=== PATIENT | female | born 1940 | race Caucasian/White ===

== ENCOUNTER 2016-06-12 15:53 | Inpatient (IN) | payer OTHER ==
[2016-06-12] MEDS ORDERED: HYDROCODONE/APAP 10/325 TAB PO PRN (17:37)
[2016-06-12] MEDS ORDERED: POLYETHYLENE GLYCOL 3350 17 GM PKT PO PRN (17:37)
[2016-06-12] MEDS ORDERED: FUROSEMIDE 20 MG TAB PO PRN (17:37)
[2016-06-12] MEDS ORDERED: BISACODYL 10 MG SUPP PR PRN (17:40)
--- NOTE | 2016-06-12 18:57 | PDOREHIP ---
Admission [facility] - Admission - 3 Day Assessment Period Admission Date/Day 1: 06/12/16 Day 2: 06/13/16 Day 3: 06/14/16 - Active Diagnoses Comorbidities and Co-existing Conditions at Admission: 15223. None of the Above - Skin Conditions Unhealed Pressure Ulcer (1 or more/Stage 1 or >)-Admission: 0. No
--- NOTE | 2016-06-12 20:09 | GHP ---
[f rep st] HISTORY AND PHYSICAL DATE OF ADMISSION: 06/12/2016 Referring Physician: Ean Boyer MD POST ADMISSION PHYSICIAN EVALUATION AND REHABILITATION TREATMENT PLAN: DATE OF EVALUATION: 06/12/2016 TIME OF EVALUATION: 1800 REFERRING FACILITY: [facility]. CONSULTING PHYSICIANS: None. REHABILITATION DIAGNOSIS: Debility status post TECHNICAL PROFESSIONAL shunt placement for normal pressure hydrocephalus. IMPAIRMENT GROUP: 3.9 ETIOLOGIC DIAGNOSIS: Other.neurologic conditions. DATE OF ONSET: 06/10/2016 DATE OF SURGERY: 06/10/2016 HISTORY OF PRESENT ILLNESS: Mrs. Corrigan had a lumbar spinal fusion for lumbar stenosis in April of this year. Her symptoms were back pain, as well as neurogenic claudication and difficulty walking. She had resolution of her symptoms after the surgery, and reports that the surgery went quite well. However, she continued to have difficulty walking. She was seen by a neurologist and had a head CT, which was suggestive of normal pressure hydrocephalus. She had a trial of a lumbar puncture, and her gait was improved. Therefore, she chose to have elective surgery with a TECHNICAL PROFESSIONAL shunt placement. She underwent this surgery on 06/10/2016. Since surgery she has begun physical and occupational therapy. She was able to ambulate 15 feet x 2. She was noted to have impaired motor planning and freezing type episodes, especially with the left lower extremity. She was otherwise medically stable and ready for rehabilitation. STUDIES AND LABS DURING HER HOSPITALIZATION: The only laboratory study was a PTT, which was slightly low at 20.6. She had a head CT postsurgery, which demonstrated no hemorrhage, the ventriculostomy catheter at the medial aspect of the frontal horn of the right lateral ventricle, and otherwise was within normal limits. An abdominal x-ray verified that the TECHNICAL PROFESSIONAL shunt terminated in the right lower quadrant. Chest x-ray was overall normal, with no discontinuity of the TECHNICAL PROFESSIONAL shunt seen; and a skull x-ray verified a normal course of the ventriculoperitoneal shunt, with no evidence of discontinuity. PRECAUTIONS: She is a fall risk. ACTIVE COMORBIDITIES: She has no tier 1 or tier 2 active comorbidities. She does have morbid obesity, with obesity complicated by hypertension. PAST MEDICAL HISTORY: 1. Hypertension. 2. Dyslipidemia. 3. Hypothyroidism. 4. History of Helicobacter pylori infection. 5. Lower extremity venous insufficiency. 6. Gastroparesis. 7. Osteoarthritis bilaterally in the knees. 8. Urinary incontinence. 9. Gastroesophageal reflux disorder. 10. Irritable bowel syndrome. 11. Lumbar spinal stenosis. 12. Cholecystitis. PAST SURGICAL HISTORY: 1. Hysterectomy. 2. Appendectomy. 3. Laparoscopic cholecystectomy. 4. Bladder suspension. 5. Cataract removal. 6. Posterior spinal fusion. PRE-HOSPITAL MEDICATIONS: I do not have a full list. She was, however, takin. Bisoprolol hydrochlorothiazide combination pill 10/6.25 mg 1 p.o. daily. 2. Cholecalciferol 1000 units p.o. daily. 3. Furosemide 10 mg p.o. daily on a p.r.n. basis. 4. Levothyroxine 75 mcg p.o. daily. 5. Lisinopril 10 mg p.o. daily. 6. Metoclopramide 5 mg p.o. daily. 7. Pantoprazole 40 mg p.o. daily. 8. Oxybutynin 5 mg p.o. daily. ADMISSION MEDICATIONS: 1. Bisoprolol hydrochlorothiazide combination pill 10/6.25 mg 1 p.o. daily. 2. Cholecalciferol 1000 units p.o. daily. 3. Furosemide 10 mg p.o. daily on a p.r.n. basis. 4. Levothyroxine 75 mcg p.o. daily. 5. Lisinopril 10 mg p.o. daily. 6. Metoclopramide 5 mg p.o. daily. 7. Pantoprazole 40 mg p.o. daily. 8. Oxybutynin 5 mg p.o. daily. 9. Acetaminophen 650 mg p.o. q.4 hours p.r.n. 10. Acetaminophen/hydrocodone 10/325, 1-2 tabs p.o. q.6 hours p.r.n., and she has not been taking this. 11. Polyethylene glycol 17 g p.o. daily p.r.n. 12. Senna/docusate 1-2 tabs p.o. twice daily p.r.n. ALLERGIES: There are allergies listed to opioids, and in particular morphine analogs. FAMILY HISTORY: Diabetes mellitus, hypertension, heart disease, and cancer. PSYCHOSOCIAL HISTORY: She is . She lived for many years in [place], [place]. She has moved to [place] to be closer to her daughter. She has 2 other children, another one of whom is in [place]. She is a nonsmoker and nondrinker. 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 She is originally from [place]. REVIEW OF SYSTEMS: Pain has been adequately controlled with acetaminophen. She has had interrupted sleep due to blood draws and other interruptions in the hospital, plus she was at a skilled nursing for rehabilitation after her spinal surgery and had interrupted sleep there also. She reports that she was taking methocarbamol in the hospital and it seemed to help her sleep. Otherwise it did not have any particular role in pain management. She has some abdominal tenderness around the abdominal incision. She reports that she has been able to make transfers, but has had difficulty walking. There is a report from the other hospital of some urinary incontinence overnight. She denies fevers, chills, difficulty swallowing, nausea, vomiting, constipation, or diarrhea. She denies dysuria or urinary frequency. She denies joint pain or joint swelling. She denies skin rash or skin breakdown. She is in good spirits. Otherwise, a 10-point review of systems is negative. PHYSICAL EXAM: VITAL SIGNS: Blood pressure is 111/66, heart rate is 66, respiratory rate 16, oxygen saturation is 94% on room air, temperature is 36.7 degrees centigrade. Her weight is 81.6 kg, for a body mass index of 38.9. GENERAL: This is an obese, otherwise petite woman. Appears younger than her chronologic age. Cooperative, and in no acute distress. HEENT: Extraocular movements are intact. Pupils are equal, round, and reactive to light and accommodation. Mucous membranes are moist. Dentition is in good condition. She has a crowded airway, Mallampati class 3. NECK: Supple. HEART: There is a regular rate and rhythm, with no murmurs, rubs, or gallops. LUNGS: Clear to auscultation bilaterally. ABDOMEN: Soft, nontender, nondistended, with normoactive bowel sounds, and no hepatosplenomegaly. She has some tenderness around her abdominal incision in the right upper quadrant. EXTREMITIES: There is no cyanosis, clubbing, or edema. Radial and dorsalis pedis pulses are 2+ bilaterally. NEUROLOGIC: She is alert and oriented x3. Cranial nerves 2-12 are grossly intact. She has 4/5 strength in the left biceps and in the right hamstring. Otherwise strength appears to be 5/5 overall. Deep tendon reflexes are hypoactive at the right patella and Achilles tendons, and are 1+ bilaterally at the left patella and Achilles tendons. Sensation is intact to light touch. Plantar reflex is indeterminate bilaterally. She requires minimal assistance of one person to arise to seated from supine. SKIN: Incisions on her right frontal scalp and in her right upper quadrant are well- approximated, with eschar, and no erythema or drainage. CURRENT LEVEL OF FUNCTION PER THE PRE-ADMISSION SCREEN: Regarding diet, feeding , and swallowing, she was taking a regular diet. For grooming she required contact guard to minimal assistance. For bathing she required assistance. For dressing she required assistance. For toileting she needed minimal assistance for clothing management. She transferred to a raised height toilet seat with minimal assistance. Regarding bladder, she was incontinent. Regarding bowel, she was continent. Regarding bed mobility she required moderate assistance for transfers, minimal assistance using a front-wheeled walker. For balance she required standby assist for sitting, and minimal assist for standing balance. Her endurance was rated as fair to fair minus. For gait she required minimal assistance. Regarding cognition, she was noted to have mild impairment in attention, problem solving, and reasoning. IMPRESSION: Mrs. Corrigan is a 76-year-old woman who had a successful surgery for normal pressure hydrocephalus with ventriculoperitoneal shunt placement. She had considerable debility prior to the surgery, requiring much assistance at home, and had not recovered functionally after what was also a successful spinal fusion for spinal stenosis. After that surgery she was pain free, but could not recover ambulation. She was diagnosed with normal pressure hydrocephalus, and now has had surgery for it and is ready for therapies with physical and occupational therapy to optimize her independence with activities of daily living and mobility. She was noted to have mild impairment in attention, problem solving, and reasoning in the acute care hospital, and so will be assessed as well by Speech and Language Pathology. She is appropriate for inpatient rehabilitation with therapies as above. Additionally, she will require nursing care due to her fall risk, for bowel and bladder management, and for attention to wound healing. Additionally, she will have education regarding medications. She will require medical care with attention to pain management, especially as she becomes more active, as well as comorbidities including hypertension, history of overactive bladder, gastroparesis, gastroesophageal reflux disorder, and irritable bowel syndrome. Her goal is to return home with family and supportive services. For a safe discharge, it is anticipated she will become independent with eating, grooming, and bed mobility. She likely will continue to require supervision to minimal assistance for dressing, bathing, and ambulation with the least restrictive device. She will most likely continue to require assistance for shopping, cooking, and household management. She will receive therapy with Physical Therapy, Occupational Therapy, and Speech and Language Pathology for 60 minutes per day for each discipline, on 5- 7 days of the week. Her expected duration of stay is 7-10 days. It is anticipated that upon discharge she will continue to benefit from home health services including speech and language pathology, a home health aide, occupational therapy, and physical therapy. . ASSESSMENT/PLAN: 1. Prolonged debility following surgery for spinal stenosis two months ago, with diagnosis of normal pressure hydrocephalus and placement of ventriculoperitoneal shunt on 06/10/2016. Physical and occupational therapy to optimize mobility and activities of daily living. Pain control appears to be adequate with acetaminophen, but this will be monitored. 2. Possible cognitive impairment following her surgery. She will be assessed and treated per Speech and Language Pathology. 3. Symptoms of overactive bladder, and urinary incontinence. These may have been due to normal pressure hydrocephalus. She is not clear that the oxybutynin has been an effective medication for this, and so it will not be continued at present and she will be observed. She will have bladder training per the rehabilitation bladder program. 4. Hypertension. Continue lisinopril and monitor her blood pressure. 5. Gastroparesis. She reports that at home she was using metoclopramide once a day, just in the morning, so the dosing will be changed from twice daily to daily. She has also learned to take smaller meals, which has helped her. Initially this presented with frequent vomiting, which she no longer experiences. 6. History of spinal stenosis status post spinal fusion surgery. It is unclear whether she has any sequelae of that condition. That might be also affecting her gait and her mobility. This will be further assessed by Physical Therapy. 7. Morbid obesity. She will have an assessment by a analytics associate to optimize her nutrition. 8. Hypothyroidism. Continue her levothyroxine. 9. Vitamin D deficiency, on cholecalciferol supplementation. 10. Gastroesophageal reflux disorder. Continue pantoprazole. 11. Deep venous thrombosis prophylaxis. She has not had a major surgery causing immobility; however, she is at elevated risk due to obesity and age. She will be treated with SCDs and MARY hose, and no pharmacological prophylaxis at present. If she is very slow to regain mobility, then consideration will be given to initiating pharmacologic prophylaxis. /[id number]/MODL MTDD
[2016-06-12] MEDS ORDERED: METOCLOPRAMIDE 5 MG TAB PO SCH (21:00)
[2016-06-12] MEDS: METHOCARBAMOL 750 MG TAB PO PRN (21:01)
[2016-06-12] MEDS: ACETAMINOPHEN 325 MG TAB PO PRN (23:31)
[2016-06-13] MEDS: LEVOTHYROXINE 75 MCG TAB PO SCH (06:04)
[2016-06-13] MEDS: ACETAMINOPHEN 325 MG TAB PO PRN ×2 (06:05→20:36)
[2016-06-13] MEDS ORDERED: OXYBUTYNIN 5 MG EXT REL TAB PO SCH (09:00)
[2016-06-13] MEDS ORDERED: NON-FORMULARY NEW DRUG (Omeprazole [Omeprazole] 40 MG) PO SCH (09:00)
[2016-06-13] MEDS: CHOLECALCIFEROL VIT D3 1,000 UNITS TAB PO SCH (09:02)
[2016-06-13] MEDS: LISINOPRIL 10 MG TAB PO SCH (09:04)
[2016-06-13] MEDS: METOCLOPRAMIDE 5 MG TAB PO SCH (09:05)
[2016-06-13] MEDS: PANTOPRAZOLE SODIUM 40 MG TAB PO SCH (09:06)
[2016-06-13] MEDS: BISOPROLOL/HCTZ 10/6.25MG 1 EACH TAB PO SCH (10:11)
--- NOTE | 2016-06-13 10:19 | SOAPPROG ---
SOAP Progress Note Assessment/Plan: Assessment: 76 yo F s/p COVER MARKER shunt placement 06/10/16 for normal pressure hydrocephalus, diagnosed after failure to regain normal ambulation following surgery for spinal stenosis 2 months previously: * Debility: Physical and occupational therapy to optimize mobility and activities of daily living. Pain control appears to be adequate with acetaminophen. * Possible cognitive impairment following her surgery. She will be assessed and treated per Speech and Language Pathology. * Symptoms of overactive bladder, and urinary incontinence: due to normal pressure hydrocephalus? Currently asymptomatic w/out oxybutynin. Continue to monitor * History of spinal stenosis status post spinal fusion surgery. It is unclear whether she has any sequelae of that condition. This will be further assessed by Physical Therapy. * Hypertension. Continue lisinopril and bisoprolol/HCTZ and monitor her blood pressure. * Deep venous thrombosis prophylaxis. She has not had a major surgery causing immobility; however, she is at elevated risk due to obesity and age. She will be treated with SCDs and MARY hose, and no pharmacological prophylaxis at present. If she is very slow to regain mobility, then consideration will be given to initiating pharmacologic prophylaxis. Chronic stable conditions: * Gastroparesis. She reports that at home she was using metoclopramide once a day, just in the morning, so the dosing will be changed from twice daily to daily. She has also learned to take smaller meals, which has helped her. Initially this presented with frequent vomiting, which she no longer experiences. * Morbid obesity. She will have an assessment by a distribution supervisor to optimize her nutrition. * Hypothyroidism. Continue her levothyroxine. * Vitamin D deficiency, on cholecalciferol supplementation. * Gastroesophageal reflux disorder. Continue pantoprazole. 06/13/16 12:12 Subjective: No complaints. Not in pain. slept well. No f/c, cough/dyspnea, n/v/c/d, dysuria, urinary incontinence. Objective: Vital Signs Temp Pulse Resp BP Pulse Ox 36.7 C 65 16 118/72 95 06/13/16 06:10 06/13/16 10:11 06/13/16 06:10 06/13/16 10:11 06/13/16 06:10 06/12/16 06/13/16 06/14/16 05:59 05:59 05:59 Intake Total 450 Balance 450 Physical Exam - Physical Exam General Appearance: WD/WN, alert, no apparent distress, obese Respiratory: No respiratory distress, No accessory muscle use Skin: normal color, warm/dry Neuro/Psych: alert, normal mood/affect, oriented x 3, other (Observe transferring ot of bed and ambulating with PT. Needed assistance with bed mobility and appeared to have freezing episode moving L leg out of bed. Standing balance good. AMbulated with conscious kicking forward of each leg. No magnetic gait seen.) ICD10 Worksheet Patient Problems: Problems Problem Status Diagnosed Normal pressure hydrocephalus Acute
[2016-06-13] MEDS ORDERED: CALCIUM CARBONATE 500 MG CHEWABLE TAB PO PRN (13:04)
[2016-06-13] MEDS: METHOCARBAMOL 750 MG TAB PO PRN (20:36)
[2016-06-13] MEDS: SENNOSIDES 1 TAB PO PRN (21:09)
[2016-06-14] MEDS: LEVOTHYROXINE 75 MCG TAB PO SCH (06:30)
[2016-06-14] MEDS: ACETAMINOPHEN 325 MG TAB PO PRN ×3 (06:33→19:58)
[2016-06-14] MEDS: POLYETHYLENE GLYCOL 3350 17 GM PKT PO SCH (08:48)
[2016-06-14] MEDS: BISOPROLOL/HCTZ 10/6.25MG 1 EACH TAB PO SCH (08:53)
[2016-06-14] MEDS: CHOLECALCIFEROL VIT D3 1,000 UNITS TAB PO SCH (08:54)
[2016-06-14] MEDS: LISINOPRIL 10 MG TAB PO SCH (08:55)
[2016-06-14] MEDS: PANTOPRAZOLE SODIUM 40 MG TAB PO SCH (08:56)
[2016-06-14] MEDS: METOCLOPRAMIDE 5 MG TAB PO SCH (08:56)
--- NOTE | 2016-06-14 11:02 | SOAPPROG ---
SOAP Progress Note Assessment/Plan: Assessment: 76 yo F s/p WRAPPER STITCHER shunt placement 06/10/16 for normal pressure hydrocephalus, diagnosed after failure to regain normal ambulation following surgery for spinal stenosis 2 months previously: * Debility: Physical and occupational therapy to optimize mobility and activities of daily living. Pain control appears to be adequate with acetaminophen. * Possible cognitive impairment following her surgery. She will be assessed and treated per Speech and Language Pathology. * Symptoms of overactive bladder, and urinary incontinence: due to normal pressure hydrocephalus? Start oxybutynin 5 mg QHS for overnight incontinence. Bladder training with timed voiding. * History of spinal stenosis status post spinal fusion surgery. It is unclear whether she has any sequelae of that condition. This will be further assessed by Physical Therapy. * Hypertension. Continue lisinopril and bisoprolol/HCTZ and monitor her blood pressure. * Deep venous thrombosis prophylaxis. She has not had a major surgery causing immobility; however, she is at elevated risk due to obesity and age. She will be treated with SCDs and MARY dedee, and no pharmacological prophylaxis at present. If she is very slow to regain mobility, then consideration will be given to initiating pharmacologic prophylaxis. Chronic stable conditions: * Gastroparesis. She reports that at home she was using metoclopramide once a day, just in the morning, so the dosing will be changed from twice daily to daily. She has also learned to take smaller meals, which has helped her. Initially this presented with frequent vomiting, which she no longer experiences. * Morbid obesity. She will have an assessment by a sewer pipe press operator to optimize her nutrition. * Hypothyroidism. Continue her levothyroxine. * Vitamin D deficiency, on cholecalciferol supplementation. * Gastroesophageal reflux disorder. Continue pantoprazole. 06/14/16 11:01 Subjective: Reports urinary incontinence with urgency at night, when she's unable to get to the bathroom. No dysuria, f/c, n/v/c/d. Objective: Vital Signs Temp Pulse Resp BP Pulse Ox 36.6 C 72 16 110/68 96 06/14/16 07:27 06/14/16 08:53 06/14/16 07:27 06/14/16 08:55 06/14/16 07:27 06/13/16 06/14/16 06/15/16 05:59 05:59 05:59 Intake Total 450 240 Output Total 625 Balance 450 -385 Physical Exam - Physical Exam General Appearance: WD/WN, alert, no apparent distress, obese Respiratory: normal breath sounds, No crackles, No rhonchi, No wheezing Cardiac/Chest: regular rate, rhythm, No edema Skin: normal color, warm/dry Neuro/Psych: alert, normal mood/affect, oriented x 3 ICD10 Worksheet Patient Problems: Problems Problem Status Diagnosed Normal pressure hydrocephalus Acute
[2016-06-14] MEDS: OXYBUTYNIN CHLORIDE 5 MG TAB PO SCH (19:58)
[2016-06-14] MEDS: METHOCARBAMOL 750 MG TAB PO PRN (20:01)
[2016-06-15] MEDS: LEVOTHYROXINE 75 MCG TAB PO SCH (06:13)
[2016-06-15] MEDS: POLYETHYLENE GLYCOL 3350 17 GM PKT PO SCH (10:15)
[2016-06-15] MEDS: BISOPROLOL/HCTZ 10/6.25MG 1 EACH TAB PO SCH (10:18)
[2016-06-15] MEDS: ACETAMINOPHEN 325 MG TAB PO PRN ×2 (10:23→19:45)
[2016-06-15] MEDS: LISINOPRIL 10 MG TAB PO SCH (10:24)
[2016-06-15] MEDS: CHOLECALCIFEROL VIT D3 1,000 UNITS TAB PO SCH (10:24)
[2016-06-15] MEDS: METOCLOPRAMIDE 5 MG TAB PO SCH (10:25)
[2016-06-15] MEDS: PANTOPRAZOLE SODIUM 40 MG TAB PO SCH (10:26)
--- NOTE | 2016-06-15 12:24 | SOAPPROG ---
SOAP Progress Note Assessment/Plan: Assessment: 76 yo F s/p JAVA USER INTERFACE DEVELOPER shunt 06/10/16 for NPH, diagnosed after failure to regain normal ambulation following surgery for spinal stenosis 2 months previously: * Debility: Physical and occupational therapy to optimize mobility and activities of daily living. Pain control appears to be adequate with acetaminophen. Ambulation improving. * Possible cognitive impairment following her surgery. Cont eval and treatment per Speech and Language Pathology. * Symptoms of overactive bladder, and urinary incontinence: due to normal pressure hydrocephalus? Oxybutynin 5 mg QHS for overnight incontinence. Bladder training with timed voiding. NSG reports less episodes of incontinence. * History of spinal stenosis, s/p spinal fusion surgery. Cont eval and treat with Physical Therapy. * Hypertension. Continue lisinopril and bisoprolol/HCTZ and monitor her blood pressure. * Deep venous thrombosis prophylaxis. She has not had a major surgery causing immobility; however, she is at elevated risk due to obesity and age. She will be treated with SCDs and MARY hose, and no pharmacological prophylaxis at present. Chronic stable conditions: * Gastroparesis. She reports that at home she was using metoclopramide once a day, just in the morning, so the dosing will be changed from twice daily to daily. She has also learned to take smaller meals, which has helped her. Initially this presented with frequent vomiting, which she no longer experiences. * Morbid obesity. She will have an assessment by a glass cutter helper to optimize her nutrition. * Hypothyroidism. Continue her levothyroxine. * Vitamin D deficiency, on cholecalciferol supplementation. * Gastroesophageal reflux disorder. Continue pantoprazole. Plan: Cont Dr Joy rehab treatment plan 06/15/16 12:21 Subjective: No new complaints Very pleased with her progress and her care No F/C/CP/SOB/N/V/D Has moderate constipation, wishes to decline meds, suppository, enema at this time Objective: Vital Signs Temp Pulse Resp BP Pulse Ox 36.5 C 73 16 133/71 H 95 06/15/16 08:00 06/15/16 10:18 06/15/16 08:00 06/15/16 10:24 06/15/16 08:00 06/14/16 06/15/16 06/16/16 05:59 05:59 05:59 Intake Total 240 400 Output Total 625 400 Balance -385 0 Physical Exam - Physical Exam General Appearance: alert, no apparent distress Neck: supple Respiratory: lungs clear Cardiac/Chest: regular rate, rhythm Abdomen: normal bowel sounds, soft Skin: normal color, warm/dry Extremities: No pedal edema, No calf tenderness Neuro/Psych: alert, normal mood/affect, oriented x 3, other (no acute changes) ICD10 Worksheet Patient Problems: Problems Problem Status Diagnosed Normal pressure hydrocephalus Acute
[2016-06-15] MEDS: SENNOSIDES 1 TAB PO PRN (19:46)
[2016-06-15] MEDS: METHOCARBAMOL 750 MG TAB PO PRN (19:46)
[2016-06-15] MEDS: OXYBUTYNIN CHLORIDE 5 MG TAB PO SCH (19:46)
[2016-06-16] MEDS: LEVOTHYROXINE 75 MCG TAB PO SCH (05:20)
[2016-06-16] MEDS: BISOPROLOL/HCTZ 10/6.25MG 1 EACH TAB PO SCH (08:34)
[2016-06-16] MEDS: ACETAMINOPHEN 325 MG TAB PO PRN ×2 (08:35→19:36)
[2016-06-16] MEDS: PANTOPRAZOLE SODIUM 40 MG TAB PO SCH (08:35)
[2016-06-16] MEDS: POLYETHYLENE GLYCOL 3350 17 GM PKT PO SCH ×2 (08:35→08:43)
[2016-06-16] MEDS: LISINOPRIL 10 MG TAB PO SCH (08:35)
[2016-06-16] MEDS: METOCLOPRAMIDE 5 MG TAB PO SCH (08:35)
[2016-06-16] MEDS: CHOLECALCIFEROL VIT D3 1,000 UNITS TAB PO SCH (08:35)
[2016-06-16] MEDS: SENNOSIDES 1 TAB PO PRN (08:41)
[2016-06-16] MEDS ORDERED: PREPARATION H 51 GM CRTUBE PR PRN (09:53)
--- NOTE | 2016-06-16 12:14 | SOAPPROG ---
SOAP Progress Note Assessment/Plan: Assessment: 76 yo F s/p VIDEO CLERK shunt 06/10/16 for NPH, diagnosed after failure to regain normal ambulation following surgery for spinal stenosis 2 months previously: * Debility: Improving. Physical and occupational therapy to optimize mobility and activities of daily living. Ambulation improving, using her own walker. * Pain: control appears to be adequate with acetaminophen. * Possible cognitive impairment following her surgery. Cont eval and treatment per Speech and Language Pathology. * Symptoms of overactive bladder, and urinary incontinence: due to normal pressure hydrocephalus? Oxybutynin 5 mg QHS for overnight incontinence. Bladder training with timed voiding. NSG reports less episodes of incontinence. * History of spinal stenosis, s/p spinal fusion surgery. Cont eval and treat with Physical Therapy. * Hypertension. Continue lisinopril and bisoprolol/HCTZ and monitor her blood pressure. * Deep venous thrombosis prophylaxis. Cont treatment with SCDs and MARY ernst, progress mobility. Chronic stable conditions: * Gastroparesis. She reports that at home she was using metoclopramide once a day, just in the morning, so the dosing will be changed from twice daily to daily. She has also learned to take smaller meals, which has helped her. Initially this presented with frequent vomiting, which she no longer experiences. * Morbid obesity. She will have an assessment by a braided rug maker to optimize her nutrition. * Hypothyroidism. Continue her levothyroxine. * Vitamin D deficiency, on cholecalciferol supplementation. * Gastroesophageal reflux disorder. Continue pantoprazole. Plan: Cont Dr Joy rehab treatment plan 06/16/16 12:11 Subjective: No new problems or C/O's Medically stable VSS No F/C/CP/SOB/N/V/D/C Objective: Vital Signs Temp Pulse Resp BP Pulse Ox 36.8 C 67 16 130/71 H 94 06/16/16 06:32 06/16/16 08:34 06/16/16 06:32 06/16/16 08:35 06/16/16 06:32 06/15/16 06/16/16 06/17/16 05:59 05:59 05:59 Intake Total 400 200 472 Output Total 400 550 350 Balance 0 -350 122 Physical Exam - Physical Exam General Appearance: alert, no apparent distress Neck: supple Respiratory: lungs clear Cardiac/Chest: regular rate, rhythm Skin: normal color, warm/dry Extremities: No pedal edema, No calf tenderness Neuro/Psych: alert, normal mood/affect, oriented x 3, motor weakness ( generalized, improving), other (no acute changes) ICD10 Worksheet Patient Problems: Problems Problem Status Diagnosed Normal pressure hydrocephalus Acute
[2016-06-16] MEDS: OXYBUTYNIN CHLORIDE 5 MG TAB PO SCH (19:36)
[2016-06-17] MEDS: LEVOTHYROXINE 75 MCG TAB PO SCH (06:02)
[2016-06-17] MEDS: BISOPROLOL/HCTZ 10/6.25MG 1 EACH TAB PO SCH (08:34)
[2016-06-17] MEDS: CHOLECALCIFEROL VIT D3 1,000 UNITS TAB PO SCH (08:34)
[2016-06-17] MEDS: METOCLOPRAMIDE 5 MG TAB PO SCH (08:35)
[2016-06-17] MEDS: LISINOPRIL 10 MG TAB PO SCH (08:35)
[2016-06-17] MEDS: PANTOPRAZOLE SODIUM 40 MG TAB PO SCH (08:36)
[2016-06-17] MEDS: ACETAMINOPHEN 325 MG TAB PO PRN ×3 (08:36→20:33)
[2016-06-17] MEDS: POLYETHYLENE GLYCOL 3350 17 GM PKT PO SCH (08:36)
[2016-06-17] MEDS ORDERED: POLYETHYLENE GLYCOL 3350 17 GM PKT PO PRN (14:26)
--- NOTE | 2016-06-17 14:35 | SOAPPROG ---
SOAP Progress Note Assessment/Plan: Assessment: 76 yo F s/p MEDICAL OFFICER PSYCHIATRY shunt placement 06/10/16 for normal pressure hydrocephalus, diagnosed after failure to regain normal ambulation following surgery for spinal stenosis 2 months previously: * Debility: Initial FIM 79 on 06/17/16. Variable function; CGA to min A bed mobility; worse later in the day. Walked 60'. Min A LB dressing, toileting. Continue Physical and occupational therapy to optimize mobility and activities of daily living. * Possible cognitive impairment following her surgery. Noted to have reduced exec fn, problem solving. Continue Speech and Language Pathology. * Symptoms of overactive bladder, and urinary incontinence: due to normal pressure hydrocephalus? Start oxybutynin 5 mg QHS for overnight incontinence. Continue timed voiding. * History of spinal stenosis status post spinal fusion surgery. Continue PT & OT. * Hypertension. Adequate control with lisinopril and bisoprolol/HCTZ. * Deep venous thrombosis prophylaxis. She has not had a major surgery causing immobility; however, she is at elevated risk due to obesity and age. She will be treated with SCDs and MARY dedee, and no pharmacological prophylaxis at present. If she is very slow to regain mobility, then consideration will be given to initiating pharmacologic prophylaxis. Chronic stable conditions: * Gastroparesis. She reports that at home she was using metoclopramide once a day, just in the morning, so the dosing will be changed from twice daily to daily. She has also learned to take smaller meals, which has helped her. Initially this presented with frequent vomiting, which she no longer experiences. * Morbid obesity. She will have an assessment by a novelty balloon assembler and packer to optimize her nutrition. * Hypothyroidism. Continue her levothyroxine. * Vitamin D deficiency, on cholecalciferol supplementation. * Gastroesophageal reflux disorder. Continue pantoprazole. Attended staffing, 15 min. D/W case mgmt, nursing, PT, OT, CLOTHING SUPERVISOR. Good potential for continued improvement. Tentative discharge date of 06/24/16. 06/17/16 14:31 Subjective: No complaints, Slept well, no f/c, no cough/dyspnea. Continent of urine with timed voiding. Nurse reports diarrhea from laxatives. Using only acetaminophen for pain. Objective: Vital Signs Temp Pulse Resp BP Pulse Ox 36.8 C 76 15 122/78 H 95 06/17/16 06:40 06/17/16 08:34 06/17/16 06:40 06/17/16 08:35 06/17/16 06:40 06/16/16 06/17/16 06/18/16 05:59 05:59 05:59 Intake Total 200 712 540 Output Total 550 350 Balance -350 362 540 - Time Spent With Patient Time Spent With Patient: Greater than 35 minutes floor time today, including more than 50% of time in coordination of care during staffing, and counseling patient. Physical Exam - Physical Exam General Appearance: WD/WN, alert, no apparent distress, obese Respiratory: normal breath sounds, No crackles, No rhonchi, No wheezing Cardiac/Chest: regular rate, rhythm, No edema Skin: normal color, warm/dry Neuro/Psych: alert, normal mood/affect, oriented x 3 ICD10 Worksheet Patient Problems: Problems Problem Status Diagnosed Normal pressure hydrocephalus Acute
[2016-06-17] MEDS: OXYBUTYNIN CHLORIDE 5 MG TAB PO SCH (20:15)
[2016-06-17] MEDS: METHOCARBAMOL 750 MG TAB PO PRN (20:15)
[2016-06-18] MEDS: LEVOTHYROXINE 75 MCG TAB PO SCH (06:02)
[2016-06-18] MEDS: ACETAMINOPHEN 325 MG TAB PO PRN ×3 (06:02→20:11)
[2016-06-18] MEDS: BISOPROLOL/HCTZ 10/6.25MG 1 EACH TAB PO SCH (09:20)
[2016-06-18] MEDS: CHOLECALCIFEROL VIT D3 1,000 UNITS TAB PO SCH (09:21)
[2016-06-18] MEDS: METOCLOPRAMIDE 5 MG TAB PO SCH (09:22)
[2016-06-18] MEDS: LISINOPRIL 10 MG TAB PO SCH (09:22)
[2016-06-18] MEDS: PANTOPRAZOLE SODIUM 40 MG TAB PO SCH (09:23)
--- NOTE | 2016-06-18 09:59 | SOAPPROG ---
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 Variable function; CGA to min A bed mobility; worse later in the day. Walked 60' as of 06/17/15 in AM; later walked 200'. Min A LB dressing, toileting. Continue physical and occupational therapy to optimize mobility and activities of daily living. * Possible cognitive impairment following her surgery. Noted to have reduced exec fn, problem solving. Continue Speech and Language Pathology. * Symptoms of overactive bladder, and urinary incontinence: due to normal pressure hydrocephalus? Started oxybutynin 5 mg QHS on 06/14/16 for overnight incontinence. Continue timed voiding. * History of spinal stenosis status post spinal fusion surgery. Continue PT & OT. * Hypertension. Adequate control with lisinopril and bisoprolol/HCTZ. * Deep venous thrombosis prophylaxis. She has not had a major surgery causing immobility; however, she is at elevated risk due to obesity and age. She will be treated with SCDs and MARY aguayoe, and no pharmacological prophylaxis at present. If she is very slow to regain mobility, then consideration will be given to initiating pharmacologic prophylaxis. Chronic stable conditions: * Gastroparesis. She reports that at home she was using metoclopramide once a day, just in the morning, so the dosing will be changed from twice daily to daily. She has also learned to take smaller meals, which has helped her. Initially this presented with frequent vomiting, which she no longer experiences. * Morbid obesity. She will have an assessment by a plush brusher to optimize her nutrition. * Hypothyroidism. Continue her levothyroxine. * Vitamin D deficiency, on cholecalciferol supplementation. * Gastroesophageal reflux disorder. Continue pantoprazole. Good potential for continued improvement. Tentative discharge date of 06/24/16. 06/18/16 10:25 Subjective: No complaints. Denies f/c, cough, dyspnea, n/v/d/c. Objective: Vital Signs Temp Pulse Resp BP Pulse Ox 36.6 C 72 18 119/64 95 06/18/16 06:09 06/18/16 09:20 06/18/16 06:09 06/18/16 09:22 06/17/16 20:00 06/17/16 06/18/16 06/19/16 05:59 05:59 05:59 Intake Total 712 840 Output Total 350 Balance 362 840 Physical Exam - Physical Exam General Appearance: WD/WN, alert, no apparent distress, obese Respiratory: No respiratory distress, No accessory muscle use Skin: normal color, warm/dry Neuro/Psych: no motor/sensory deficits, alert, normal mood/affect, oriented x 3 ICD10 Worksheet Patient Problems: Problems Problem Status Diagnosed Normal pressure hydrocephalus Acute
[2016-06-18] MEDS: METHOCARBAMOL 750 MG TAB PO PRN (20:11)
[2016-06-18] MEDS: OXYBUTYNIN CHLORIDE 5 MG TAB PO SCH (20:11)
[2016-06-19] MEDS: ACETAMINOPHEN 325 MG TAB PO PRN ×2 (05:51→20:38)
[2016-06-19] MEDS: LEVOTHYROXINE 75 MCG TAB PO SCH (05:52)
[2016-06-19] MEDS: CHOLECALCIFEROL VIT D3 1,000 UNITS TAB PO SCH (08:15)
[2016-06-19] MEDS: BISOPROLOL/HCTZ 10/6.25MG 1 EACH TAB PO SCH (08:15)
[2016-06-19] MEDS: LISINOPRIL 10 MG TAB PO SCH (08:16)
[2016-06-19] MEDS: PANTOPRAZOLE SODIUM 40 MG TAB PO SCH (08:17)
[2016-06-19] MEDS: METOCLOPRAMIDE 5 MG TAB PO SCH (08:17)
--- NOTE | 2016-06-19 14:33 | SOAPPROG ---
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 Variable function; CGA to min A bed mobility; worse later in the day. Walked 60' as of 06/17/15 in AM; later walked 200'. Min A LB dressing, toileting. Continue physical and occupational therapy to optimize mobility and activities of daily living. * Possible cognitive impairment following her surgery. Noted to have reduced exec fn, problem solving. Continue Speech and Language Pathology. * Symptoms of overactive bladder, and urinary incontinence: due to normal pressure hydrocephalus? Started oxybutynin 5 mg QHS on 06/14/16 for overnight incontinence. Continue timed voiding. * History of spinal stenosis status post spinal fusion surgery. Continue PT & OT. * Deep venous thrombosis prophylaxis. She has not had a major surgery causing immobility; however, she is at elevated risk due to obesity and age. She will be treated with SCDs and MARY ernst, and no pharmacological prophylaxis at present. If she is very slow to regain mobility, then consideration will be given to initiating pharmacologic prophylaxis. Chronic stable conditions: * Hypertension. Adequate control with lisinopril and bisoprolol/HCTZ. * Gastroparesis. She reports that at home she was using metoclopramide once a day, just in the morning, so the dosing will be changed from twice daily to daily. She has also learned to take smaller meals, which has helped her. Initially this presented with frequent vomiting, which she no longer experiences. * Morbid obesity. She will have an assessment by a filleter to optimize her nutrition. * Hypothyroidism. Continue her levothyroxine. * Vitamin D deficiency, on cholecalciferol supplementation. * Gastroesophageal reflux disorder. Continue pantoprazole. Good potential for continued improvement. Tentative discharge date of 06/24/16. 06/19/16 14:33 Subjective: Feels she's walking much better now. Has been walking to meals as well as with therapies. No cough, dyspnea, pain, n/v/c/d. Objective: Vital Signs Temp Pulse Resp BP Pulse Ox 36.4 C 67 18 111/57 L 94 06/19/16 05:46 06/19/16 08:15 06/19/16 05:46 06/19/16 08:16 06/19/16 05:46 06/18/16 06/19/16 06/20/16 05:59 05:59 05:59 Intake Total 840 936 920 Output Total 300 600 Balance 840 636 320 Physical Exam - Physical Exam General Appearance: WD/WN, alert, no apparent distress, obese Respiratory: normal breath sounds, No crackles, No rhonchi, No wheezing Cardiac/Chest: regular rate, rhythm, No edema Skin: normal color, warm/dry Neuro/Psych: no motor/sensory deficits, alert, normal mood/affect, oriented x 3 , abnormal gait (with FWW. Occ freezing; has plastic cone hanging from walker which she kicks to resume gait when freezing. Slightly wide base, usually step- through pattern.) ICD10 Worksheet Patient Problems: Problems Problem Status Diagnosed Normal pressure hydrocephalus Acute
[2016-06-19] MEDS: SENNOSIDES 1 TAB PO PRN (20:38)
[2016-06-19] MEDS: OXYBUTYNIN CHLORIDE 5 MG TAB PO SCH (20:39)
[2016-06-19] MEDS: METHOCARBAMOL 750 MG TAB PO PRN (20:43)
[2016-06-20] MEDS: LEVOTHYROXINE 75 MCG TAB PO SCH (05:15)
[2016-06-20] MEDS: PANTOPRAZOLE SODIUM 40 MG TAB PO SCH (08:35)
[2016-06-20] MEDS: LISINOPRIL 10 MG TAB PO SCH (08:35)
[2016-06-20] MEDS: CHOLECALCIFEROL VIT D3 1,000 UNITS TAB PO SCH (08:35)
[2016-06-20] MEDS: BISOPROLOL/HCTZ 10/6.25MG 1 EACH TAB PO SCH (08:35)
[2016-06-20] MEDS: METOCLOPRAMIDE 5 MG TAB PO SCH (08:35)
--- NOTE | 2016-06-20 09:55 | SOAPPROG ---
SOAP Progress Note Assessment/Plan: Assessment: 76 yo F s/p EAR FLAP BINDER shunt placement 06/10/16 for normal pressure hydrocephalus, diagnosed after failure to regain normal ambulation following surgery for spinal stenosis 2 months previously: * Debility: Initial FIM 79 on 06/17/16; gain to 89 on 06/20/16. Always needs help to get legs back into bed; transfers better to R but at home needs to transfer to L. Walked 200'. Min A for shoes; o/w S or SBA for ADLs. Has freezing episodes when turning or pivoting but has strategies to get moving again. Continue physical and occupational therapy to optimize mobility and activities of daily living. * Possible cognitive impairment following her surgery. Noted to have reduced exec fn, problem solving, improving. Continue Speech and Language Pathology. * Symptoms of overactive bladder, and urinary incontinence: due to normal pressure hydrocephalus? Started oxybutynin 5 mg QHS on 06/14/16 for overnight incontinence. Continue timed voiding,Q 4 hr at night per her request. * History of spinal stenosis status post spinal fusion surgery. Continue PT & OT. * Deep venous thrombosis prophylaxis. She has not had a major surgery causing immobility; however, she is at elevated risk due to obesity and age. She will be treated with SCDs and MARY hose, and no pharmacological prophylaxis at present. If she is very slow to regain mobility, then consideration will be given to initiating pharmacologic prophylaxis. Chronic stable conditions: * Hypertension. Adequate control with lisinopril and bisoprolol/HCTZ. * Gastroparesis. She reports that at home she was using metoclopramide once a day, just in the morning, so the dosing will be changed from twice daily to daily. She has also learned to take smaller meals, which has helped her. Initially this presented with frequent vomiting, which she no longer experiences. * Morbid obesity. She will have an assessment by a poured pipe maker to optimize her nutrition. * Hypothyroidism. Continue her levothyroxine. * Vitamin D deficiency, on cholecalciferol supplementation. * Gastroesophageal reflux disorder. Continue pantoprazole. Attended staffing, 15 min. D/W case mgmt, nursing, poured pipe maker, PT, OT, CHIEF VENDOR QUALITY. Continue tentative discharge date of 06/24/16. 06/20/16 11:07 Subjective: No complaints. Slept well. No f/c, cough/dyspnea, n/v/c/d. Objective: Vital Signs Temp Pulse Resp BP Pulse Ox 36.4 C 56 L 18 135/72 H 95 06/20/16 05:22 06/20/16 05:22 06/20/16 05:22 06/20/16 05:22 06/20/16 05:22 06/19/16 06/20/16 06/21/16 05:59 05:59 05:59 Intake Total 936 1620 540 Output Total 300 600 Balance 636 1020 540 - Time Spent With Patient Time Spent With Patient: Greater than 35 minutes floor time today, including more than 50% of time in coordination of care during staffing meeting, and counseling patient. Physical Exam - Physical Exam General Appearance: WD/WN, alert, no apparent distress, obese Respiratory: normal breath sounds, No crackles, No rhonchi, No wheezing Cardiac/Chest: regular rate, rhythm, edema (Trace - 1+ L dhillon, none R dhillon) Skin: normal color, warm/dry Neuro/Psych: no motor/sensory deficits, alert, normal mood/affect, oriented x 3 ICD10 Worksheet Patient Problems: Problems Problem Status Diagnosed Normal pressure hydrocephalus Acute
[2016-06-20] MEDS: ACETAMINOPHEN 325 MG TAB PO PRN ×2 (14:00→20:11)
[2016-06-20] MEDS: METHOCARBAMOL 750 MG TAB PO PRN (20:11)
[2016-06-20] MEDS: OXYBUTYNIN CHLORIDE 5 MG TAB PO SCH (20:11)
[2016-06-21] MEDS: LEVOTHYROXINE 75 MCG TAB PO SCH (06:03)
[2016-06-21] MEDS: BISOPROLOL/HCTZ 10/6.25MG 1 EACH TAB PO SCH (08:33)
[2016-06-21] MEDS: CHOLECALCIFEROL VIT D3 1,000 UNITS TAB PO SCH (08:38)
[2016-06-21] MEDS: LISINOPRIL 10 MG TAB PO SCH (08:38)
[2016-06-21] MEDS: PANTOPRAZOLE SODIUM 40 MG TAB PO SCH (08:39)
[2016-06-21] MEDS: METOCLOPRAMIDE 5 MG TAB PO SCH (08:39)
--- NOTE | 2016-06-21 15:19 | SOAPPROG ---
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 Always needs help to get legs back into bed; transfers better to R but at home needs to transfer to L. Walked 200'. Min A for shoes; o/w S or SBA for ADLs. Has freezing episodes when turning or pivoting but has strategies to get moving again. Continue physical and occupational therapy to optimize mobility and activities of daily living. * Possible cognitive impairment following her surgery. Noted to have reduced exec fn, problem solving, improving. Continue Speech and Language Pathology. * Symptoms of overactive bladder, and urinary incontinence: due to normal pressure hydrocephalus? Started oxybutynin 5 mg QHS on 06/14/16 for overnight incontinence. Continue timed voiding,Q 4 hr at night per her request. * History of spinal stenosis status post spinal fusion surgery. Continue PT & OT. * Deep venous thrombosis prophylaxis. She has not had a major surgery causing immobility; however, she is at elevated risk due to obesity and age. She will be treated with SCDs and MARY aguayoe, and no pharmacological prophylaxis at present. If she is very slow to regain mobility, then consideration will be given to initiating pharmacologic prophylaxis. Chronic stable conditions: * Hypertension. Adequate control with lisinopril and bisoprolol/HCTZ. * Gastroparesis. She reports that at home she was using metoclopramide once a day, just in the morning, so the dosing will be changed from twice daily to daily. She has also learned to take smaller meals, which has helped her. Initially this presented with frequent vomiting, which she no longer experiences. * Morbid obesity. She will have an assessment by a new accounts clerk to optimize her nutrition. * Hypothyroidism. Continue her levothyroxine. * Vitamin D deficiency, on cholecalciferol supplementation. * Gastroesophageal reflux disorder. Continue pantoprazole. Continue tentative discharge date of 06/24/16. Subjective: No acute issues. No complaints today, denies N/V or vision changes. Objective: Vital Signs Temp Pulse Resp BP Pulse Ox 36.5 C 70 18 121/70 H 95 06/20/16 19:51 06/21/16 08:33 06/21/16 08:00 06/21/16 08:38 06/20/16 19:51 06/20/16 06/21/16 06/22/16 05:59 05:59 05:59 Intake Total 1620 1100 560 Output Total 600 300 Balance 1020 800 560 - Pending Discharge Pending Discharge Within 24 Hours: No Pending Discharge Within 48 Hours: No Physical Exam - Physical Exam General Appearance: alert, no apparent distress Neck: supple Respiratory: lungs clear, normal breath sounds Cardiac/Chest: regular rate, rhythm Abdomen: non-tender, soft Skin: other (incisions well healed) Neuro/Psych: alert, normal mood/affect, oriented x 3 ICD10 Worksheet Patient Problems: Problems Problem Status Diagnosed Normal pressure hydrocephalus Acute
[2016-06-21] MEDS: OXYBUTYNIN CHLORIDE 5 MG TAB PO SCH (19:50)
[2016-06-21] MEDS: METHOCARBAMOL 750 MG TAB PO PRN (19:50)
[2016-06-21] MEDS: ACETAMINOPHEN 325 MG TAB PO PRN (19:51)
[2016-06-22] MEDS: ACETAMINOPHEN 325 MG TAB PO PRN ×2 (03:33→21:03)
[2016-06-22] MEDS: LEVOTHYROXINE 75 MCG TAB PO SCH (05:46)
[2016-06-22] MEDS: BISOPROLOL/HCTZ 10/6.25MG 1 EACH TAB PO SCH (09:19)
[2016-06-22] MEDS: PANTOPRAZOLE SODIUM 40 MG TAB PO SCH (09:20)
[2016-06-22] MEDS: METOCLOPRAMIDE 5 MG TAB PO SCH (09:20)
[2016-06-22] MEDS: LISINOPRIL 10 MG TAB PO SCH (09:20)
[2016-06-22] MEDS: CHOLECALCIFEROL VIT D3 1,000 UNITS TAB PO SCH (09:20)
--- NOTE | 2016-06-22 12:15 | SOAPPROG ---
SOAP Progress Note Assessment/Plan: 76 yo F s/p POOL CLEANER shunt placement 06/10/16 for normal pressure hydrocephalus, diagnosed after failure to regain normal ambulation following surgery for spinal stenosis 2 months previously: * Debility: Initial FIM 79 on 06/17/16; gain to 89 on 06/20/16. Always needs help to get legs back into bed; transfers better to R but at home needs to transfer to L. Walked 200'. Min A for shoes; o/w S or SBA for ADLs. Has freezing episodes when turning or pivoting but has strategies to get moving again. Continue physical and occupational therapy to optimize mobility and activities of daily living. * Possible cognitive impairment following her surgery. Noted to have reduced exec fn, problem solving, improving. Continue Speech and Language Pathology. * Symptoms of overactive bladder, and urinary incontinence: due to normal pressure hydrocephalus? Started oxybutynin 5 mg QHS on 06/14/16 for overnight incontinence. Continue timed voiding,Q 4 hr at night per her request. * History of spinal stenosis status post spinal fusion surgery. Continue PT & OT. * Deep venous thrombosis prophylaxis. She has not had a major surgery causing immobility; however, she is at elevated risk due to obesity and age. She will be treated with SCDs and MARY aguayoe, and no pharmacological prophylaxis at present. If she is very slow to regain mobility, then consideration will be given to initiating pharmacologic prophylaxis. Chronic stable conditions: * Hypertension. Adequate control with lisinopril and bisoprolol/HCTZ. * Gastroparesis. She reports that at home she was using metoclopramide once a day, just in the morning, so the dosing will be changed from twice daily to daily. She has also learned to take smaller meals, which has helped her. Initially this presented with frequent vomiting, which she no longer experiences. * Morbid obesity. She will have an assessment by a burner operator to optimize her nutrition. * Hypothyroidism. Continue her levothyroxine. * Vitamin D deficiency, on cholecalciferol supplementation. * Gastroesophageal reflux disorder. Continue pantoprazole. Continue tentative discharge date of 06/24/16. 06/22/16 12:14 Subjective: No acute events. Eating lunch, is without complaint. denies [place], vision changes. Objective: Vital Signs Temp Pulse Resp BP Pulse Ox 36.7 C 62 16 120/71 92 06/22/16 07:53 01/08/17 09:19 06/22/16 07:53 06/22/16 09:20 06/22/16 07:53 06/21/16 06/22/16 06/23/16 05:59 05:59 05:59 Intake Total 1100 960 340 Output Total 300 750 Balance 800 210 340 - Pending Discharge Pending Discharge Within 24 Hours: No Pending Discharge Within 48 Hours: No Physical Exam - Physical Exam General Appearance: alert, no apparent distress Neck: supple Respiratory: lungs clear, normal breath sounds Cardiac/Chest: regular rate, rhythm Skin: other (incisions well healed) Neuro/Psych: alert, normal mood/affect, oriented x 3, No abnormal premium note interest calculator clerk [id number] ICD10 Worksheet Patient Problems: Problems Problem Status Diagnosed Normal pressure hydrocephalus Acute
[2016-06-22] MEDS: OXYBUTYNIN CHLORIDE 5 MG TAB PO SCH (21:03)
[2016-06-22] MEDS: METHOCARBAMOL 750 MG TAB PO PRN (21:03)
[2016-06-23] MEDS: LEVOTHYROXINE 75 MCG TAB PO SCH (04:58)
[2016-06-23] MEDS: LISINOPRIL 10 MG TAB PO SCH (07:40)
[2016-06-23] MEDS: PANTOPRAZOLE SODIUM 40 MG TAB PO SCH (07:40)
[2016-06-23] MEDS: METOCLOPRAMIDE 5 MG TAB PO SCH (07:40)
[2016-06-23] MEDS: CHOLECALCIFEROL VIT D3 1,000 UNITS TAB PO SCH (07:41)
[2016-06-23] MEDS: BISOPROLOL/HCTZ 10/6.25MG 1 EACH TAB PO SCH (07:41)
[2016-06-23] MEDS: ACETAMINOPHEN 325 MG TAB PO PRN ×2 (07:44→20:18)
--- NOTE | 2016-06-23 13:28 | SOAPPROG ---
SOAP Progress Note Assessment/Plan: Assessment: 76 yo F s/p CONVEYOR MONITOR shunt placement 06/10/16 for normal pressure hydrocephalus, diagnosed after failure to regain normal ambulation following surgery for spinal stenosis 2 months previously: * Debility: Initial FIM 79 on 06/17/16; gain to 89 on 06/20/16. Always needs help to get legs back into bed; transfers better to R but at home needs to transfer to L. Walked 200'. Min A for shoes; o/w S or SBA for ADLs. Has freezing episodes when turning or pivoting but has strategies to get moving again. Continue physical and occupational therapy to optimize mobility and activities of daily living. * Possible cognitive impairment following her surgery. Noted to have reduced exec fn, problem solving, improving. Continue Speech and Language Pathology. * Symptoms of overactive bladder, and urinary incontinence: due to normal pressure hydrocephalus? Started oxybutynin 5 mg QHS on 06/14/16 for overnight incontinence. Continue timed voiding,Q 4 hr at night per her request. * History of spinal stenosis status post spinal fusion surgery. Continue PT & OT. * Deep venous thrombosis prophylaxis. She has not had a major surgery causing immobility; however, she is at elevated risk due to obesity and age. She will be treated with SCDs and MARY aguayoe, and no pharmacological prophylaxis at present. If she is very slow to regain mobility, then consideration will be given to initiating pharmacologic prophylaxis. Chronic stable conditions: * Hypertension. Adequate control with lisinopril and bisoprolol/HCTZ. * Gastroparesis. She reports that at home she was using metoclopramide once a day, just in the morning, so the dosing will be changed from twice daily to daily. She has also learned to take smaller meals, which has helped her. Initially this presented with frequent vomiting, which she no longer experiences. * Morbid obesity. She will have an assessment by a forklift truck operator to optimize her nutrition. * Hypothyroidism. Continue her levothyroxine. * Vitamin D deficiency, on cholecalciferol supplementation. * Gastroesophageal reflux disorder. Continue pantoprazole. Continue tentative discharge date of 06/26/16. 06/23/16 13:29 Subjective: No complaints. doing well. No f/c, cough/dyspnea, n/v/d/c. Objective: Vital Signs Temp Pulse Resp BP Pulse Ox 36.6 C 60 16 112/72 95 01/09/17 06:40 06/23/16 07:41 06/23/16 06:40 06/23/16 07:41 06/23/16 06:40 06/22/16 06/23/16 06/24/16 05:59 05:59 05:59 Intake Total 960 1060 300 Output Total 750 400 Balance 210 660 300 Physical Exam - Physical Exam General Appearance: WD/WN, alert, no apparent distress, obese Respiratory: No respiratory distress, No accessory muscle use Skin: normal color, warm/dry Neuro/Psych: alert, normal mood/affect, oriented x 3, other (Observed ascending and descending platform steps with FWW, SBA/CGA per PT.) ICD10 Worksheet Patient Problems: Problems Problem Status Diagnosed Normal pressure hydrocephalus Acute
[2016-06-23] MEDS: METHOCARBAMOL 750 MG TAB PO PRN (20:18)
[2016-06-23] MEDS: OXYBUTYNIN CHLORIDE 5 MG TAB PO SCH (20:18)
[2016-06-24] MEDS: LEVOTHYROXINE 75 MCG TAB PO SCH (05:16)
[2016-06-24] MEDS: BISOPROLOL/HCTZ 10/6.25MG 1 EACH TAB PO SCH (07:34)
[2016-06-24] MEDS: PANTOPRAZOLE SODIUM 40 MG TAB PO SCH (07:36)
[2016-06-24] MEDS: METOCLOPRAMIDE 5 MG TAB PO SCH (07:36)
[2016-06-24] MEDS: CHOLECALCIFEROL VIT D3 1,000 UNITS TAB PO SCH (07:37)
[2016-06-24] MEDS: LISINOPRIL 10 MG TAB PO SCH (07:37)
--- NOTE | 2016-06-24 15:10 | SOAPPROG ---
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 Always needs help to get legs back into bed; transfers better to R but at home needs to transfer to L. Walked 200'. Min A for shoes; o/w S or SBA for ADLs. Has freezing episodes when turning or pivoting but has strategies to get moving again. Continue physical and occupational therapy to optimize mobility and activities of daily living. * Possible cognitive impairment following her surgery. Noted to have reduced exec fn, problem solving, improving. Continue Speech and Language Pathology. * Symptoms of overactive bladder, and urinary incontinence: due to normal pressure hydrocephalus? Started oxybutynin 5 mg QHS on 06/14/16 for overnight incontinence. Continue timed voiding,Q 4 hr at night per her request. * History of spinal stenosis status post spinal fusion surgery. Continue PT & OT. * Deep venous thrombosis prophylaxis. She has not had a major surgery causing immobility; however, she is at elevated risk due to obesity and age. She will be treated with SCDs and MARY aguayoe, and no pharmacological prophylaxis at present. If she is very slow to regain mobility, then consideration will be given to initiating pharmacologic prophylaxis. Chronic stable conditions: * Hypertension. Adequate control with lisinopril and bisoprolol/HCTZ. * Gastroparesis. She reports that at home she was using metoclopramide once a day, just in the morning, so the dosing will be changed from twice daily to daily. She has also learned to take smaller meals, which has helped her. Initially this presented with frequent vomiting, which she no longer experiences. * Morbid obesity. She will have an assessment by a deli bakery clerk to optimize her nutrition. * Hypothyroidism. Continue her levothyroxine. * Vitamin D deficiency, on cholecalciferol supplementation. * Gastroesophageal reflux disorder. Continue pantoprazole. Discharge date of 06/27/16. Follow-up with Neurosurgeon Dr. Boyer 06/25/16. 06/24/16 15:11 Subjective: No complaints. Denies cough, dyspnea, f/c, n/v/c/d. Objective: Vital Signs Temp Pulse Resp BP Pulse Ox 36.3 C 60 16 134/76 H 92 06/24/16 05:15 06/24/16 07:34 06/24/16 05:15 06/24/16 07:37 06/24/16 05:15 06/23/16 06/24/16 06/25/16 05:59 05:59 05:59 Intake Total 1060 800 Output Total 400 Balance 660 800 Physical Exam - Physical Exam General Appearance: WD/WN, alert, no apparent distress Respiratory: No respiratory distress, No accessory muscle use Skin: normal color, warm/dry Neuro/Psych: no motor/sensory deficits, alert, normal mood/affect, oriented x 3 ICD10 Worksheet Patient Problems: Problems Problem Status Diagnosed Normal pressure hydrocephalus Acute
[2016-06-24] MEDS: ACETAMINOPHEN 325 MG TAB PO PRN ×2 (16:05→20:24)
[2016-06-24] MEDS: OXYBUTYNIN CHLORIDE 5 MG TAB PO SCH (20:20)
[2016-06-24] MEDS: METHOCARBAMOL 750 MG TAB PO PRN (20:24)
[2016-06-25] MEDS: LEVOTHYROXINE 75 MCG TAB PO SCH (04:52)
[2016-06-25] MEDS: BISOPROLOL/HCTZ 10/6.25MG 1 EACH TAB PO SCH (08:28)
[2016-06-25] MEDS: METOCLOPRAMIDE 5 MG TAB PO SCH (08:29)
[2016-06-25] MEDS: PANTOPRAZOLE SODIUM 40 MG TAB PO SCH (08:29)
[2016-06-25] MEDS: CHOLECALCIFEROL VIT D3 1,000 UNITS TAB PO SCH (08:29)
[2016-06-25] MEDS: LISINOPRIL 10 MG TAB PO SCH (08:29)
[2016-06-25] MEDS: ACETAMINOPHEN 325 MG TAB PO PRN ×2 (08:31→20:09)
--- NOTE | 2016-06-25 13:32 | SOAPPROG ---
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 Always needs help to get legs back into bed; transfers better to R but at home needs to transfer to L. Walked 200'. Min A for shoes; o/w S or SBA for ADLs. Has freezing episodes when turning or pivoting but has strategies to get moving again. Continue physical and occupational therapy to optimize mobility and activities of daily living. * Possible cognitive impairment following her surgery. Noted to have reduced exec fn, problem solving, improving. Continue Speech and Language Pathology. * Symptoms of overactive bladder, and urinary incontinence: due to normal pressure hydrocephalus? Started oxybutynin 5 mg QHS on 06/14/16 for overnight incontinence. Continue timed voiding,Q 4 hr at night per her request. * History of spinal stenosis status post spinal fusion surgery. Continue PT & OT. * Deep venous thrombosis prophylaxis. She has not had a major surgery causing immobility; however, she is at elevated risk due to obesity and age. She will be treated with SCDs and MARY aguayoe, and no pharmacological prophylaxis at present. If she is very slow to regain mobility, then consideration will be given to initiating pharmacologic prophylaxis. Chronic stable conditions: * Hypertension. Adequate control with lisinopril and bisoprolol/HCTZ. * Gastroparesis. She reports that at home she was using metoclopramide once a day, just in the morning, so the dosing will be changed from twice daily to daily. She has also learned to take smaller meals, which has helped her. Initially this presented with frequent vomiting, which she no longer experiences. * Morbid obesity. She will have an assessment by a garden tractor mechanic to optimize her nutrition. * Hypothyroidism. Continue her levothyroxine. * Vitamin D deficiency, on cholecalciferol supplementation. * Gastroesophageal reflux disorder. Continue pantoprazole. Discharge date of 06/27/16. 06/25/16 13:32 Subjective: Reports that she saw Dr. Boyer this morning, and follow-up is scheduled for July 17. No complaints. Denies pain, dyspnea, cough, f/c. Objective: Vital Signs Temp Pulse Resp BP Pulse Ox 36.6 C 69 16 122/66 H 93 06/25/16 08:00 06/25/16 08:00 06/25/16 08:00 06/25/16 08:29 06/25/16 08:00 06/24/16 06/25/16 06/26/16 05:59 05:59 05:59 Intake Total 800 590 240 Balance 800 590 240 Physical Exam - Physical Exam General Appearance: WD/WN, alert, no apparent distress, obese Respiratory: No respiratory distress, No accessory muscle use Skin: normal color, warm/dry Neuro/Psych: alert, normal mood/affect, oriented x 3, abnormal gait (with FWW, PT following. Slightly wide base short steps, occasional freezing episodes which resolve after a few moments.) ICD10 Worksheet Patient Problems: Problems Problem Status Diagnosed Normal pressure hydrocephalus Acute
[2016-06-25] MEDS: SENNOSIDES 1 TAB PO PRN (18:29)
[2016-06-25] MEDS: OXYBUTYNIN CHLORIDE 5 MG TAB PO SCH (20:09)
[2016-06-25] MEDS: METHOCARBAMOL 750 MG TAB PO PRN (20:13)
[2016-06-26] MEDS: LEVOTHYROXINE 75 MCG TAB PO SCH (04:30)
[2016-06-26] MEDS: PANTOPRAZOLE SODIUM 40 MG TAB PO SCH (08:46)
[2016-06-26] MEDS: LISINOPRIL 10 MG TAB PO SCH (08:46)
[2016-06-26] MEDS: METOCLOPRAMIDE 5 MG TAB PO SCH (08:46)
[2016-06-26] MEDS: BISOPROLOL/HCTZ 10/6.25MG 1 EACH TAB PO SCH (08:46)
[2016-06-26] MEDS: CHOLECALCIFEROL VIT D3 1,000 UNITS TAB PO SCH (08:46)
[2016-06-26] MEDS: ACETAMINOPHEN 325 MG TAB PO PRN ×2 (08:49→19:47)
--- NOTE | 2016-06-26 14:58 | SOAPPROG ---
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 Always needs help to get legs back into bed; transfers better to R but at home needs to transfer to L. Walked 200'. Min A for shoes; o/w S or SBA for ADLs. Has freezing episodes when turning or pivoting but has strategies to get moving again. Continue physical and occupational therapy to optimize mobility and activities of daily living. * Possible cognitive impairment following her surgery. Noted to have reduced exec fn, problem solving, improving. Continue Speech and Language Pathology. * Symptoms of overactive bladder, and urinary incontinence: due to normal pressure hydrocephalus? Started oxybutynin 5 mg QHS on 06/14/16 for overnight incontinence. Continue timed voiding,Q 4 hr at night per her request. * History of spinal stenosis status post spinal fusion surgery. Continue PT & OT. * Deep venous thrombosis prophylaxis. She has not had a major surgery causing immobility; however, she is at elevated risk due to obesity and age. She will be treated with SCDs and MARY hose, and no pharmacological prophylaxis at present. If she is very slow to regain mobility, then consideration will be given to initiating pharmacologic prophylaxis. Chronic stable conditions: * Hypertension. Adequate control with lisinopril and bisoprolol/HCTZ. * Gastroparesis. She reports that at home she was using metoclopramide once a day, just in the morning, so the dosing will be changed from twice daily to daily. She has also learned to take smaller meals, which has helped her. Initially this presented with frequent vomiting, which she no longer experiences. * Morbid obesity. She will have an assessment by a quotation clerk to optimize her nutrition. * Hypothyroidism. Continue her levothyroxine. * Vitamin D deficiency, on cholecalciferol supplementation. * Gastroesophageal reflux disorder. Continue pantoprazole. Discharge date of 06/27/16. Home PT & OT. Follow-up PCP Dr. Kellie Sloan, at 1500; Neurosurgeon Dr. Ean Boyer 07/06/16, 0900. 06/26/16 14:56 Subjective: No complaints, slept well, no f/c, cough/dyspnea, n/v/c/d. Grateful for her rehabilitation stay. Objective: Vital Signs Temp Pulse Resp BP Pulse Ox 36.6 C 62 16 128/64 H 93 06/26/16 07:04 06/26/16 07:04 06/26/16 07:04 06/26/16 07:04 06/26/16 07:04 06/25/16 06/26/16 06/27/16 05:59 05:59 05:59 Intake Total 590 660 150 Output Total 400 Balance 590 260 150 Physical Exam - Physical Exam General Appearance: WD/WN, alert, no apparent distress, obese Respiratory: No respiratory distress, No accessory muscle use Skin: normal color, warm/dry Neuro/Psych: alert, normal mood/affect, oriented x 3 ICD10 Worksheet Patient Problems: Problems Problem Status Diagnosed Normal pressure hydrocephalus Acute
[2016-06-26 18:49] VITALS: TEMP 97.7; O2SAT 95
[2016-06-26] MEDS: OXYBUTYNIN CHLORIDE 5 MG TAB PO SCH (19:42)
[2016-06-27] MEDS: LEVOTHYROXINE 75 MCG TAB PO SCH (05:40)
[2016-06-27 05:47] VITALS: RESP 18
[2016-06-27 08:50] VITALS: BP 108/60; PULSE 72
[2016-06-27] MEDS: BISOPROLOL/HCTZ 10/6.25MG 1 EACH TAB PO SCH (08:50)
[2016-06-27] MEDS: METOCLOPRAMIDE 5 MG TAB PO SCH (08:51)
[2016-06-27] MEDS: PANTOPRAZOLE SODIUM 40 MG TAB PO SCH (08:51)
[2016-06-27] MEDS: CHOLECALCIFEROL VIT D3 1,000 UNITS TAB PO SCH (08:51)
[2016-06-27] MEDS: LISINOPRIL 10 MG TAB PO SCH (08:51)
[2016-06-27] MEDS: ACETAMINOPHEN 325 MG TAB PO PRN (08:54)
--- NOTE | 2016-06-27 13:03 | PDOREHIP ---
Admission [facility] - Admission - 3 Day Assessment Period Admission Date/Day 1: 06/12/16 Day 2: 06/13/16 Day 3: 06/14/16 Discharge [facility] - Discharge - 3 Day Assessment Period 2 Days Prior to Anticipated Discharge Date: 06/25/16 1 Day Prior to Anticipated Discharge Date: 06/26/16 Anticipated Discharge Date: 06/27/16 - Discharge Skin Conditions Unhealed Pressure Ulcer (1 or more/Stage 1 or >)-Discharge: 0. No
--- NOTE | 2016-06-27 13:29 | GDS ---
[f rep st] DISCHARGE SUMMARY ADMISSION DIAGNOSIS: Normal pressure hydrocephalus, status post ventriculoperitoneal shunt placement . DISCHARGE DIAGNOSIS: Normal pressure hydrocephalus, status post ventriculoperitoneal shunt placement . CONSULTATIONS: There were none. PROCEDURES: There were none. COMPLICATIONS: There were none. HISTORY/HOSPITAL COURSE: Mrs. Corrigan was admitted to [facility] where she had undergone a ventriculoperitoneal shunt placement for normal pressure hydrocephalus on 06/10/2016. She had had lumbar spinal surgery, approximately 2 months pre viously, but did not have expected recovery of ambulation. Further investigation revealed normal pre ssure hydrocephalus, so she was hospitalized for surgery by neurosurgeon, Dr Boyer. She came to inpatient rehabilitation with considerable debility. Her initial functional independence measure (FIM) was 79, on 06/17/2016. This was consistent with intermediate level of care. By 06/20, her FIM had increased to 89, which is consistent with assisted living facility level of care. By the date of discharge, she was able to walk 160 feet with standby assistance for safety. She had freezing episodes from time to time, especially with turning, but this improved. She was able to ne gotiate a 4-inch curb step with her front-wheeled walker safely, though she benefitted from standby a ssistance and occasional cuing for safety. Her freezing episodes were worse when she was fatigued. She was able to accomplish activities of daily living with setup and standby assist using a fitness technician f or starting her pants over feet. She had had symptoms of overactive bladder and urinary incontinence. She had improvement in these sy mptoms, possibly due to resolution of a normal-pressure hydrocephalus. Additionally, she was taking oxybutynin 5 mg at bedtime, which effectively treated overnight incontinence. She had chronic conditions of hypertension, gastroparesis, hypothyroidism, vitamin D deficiency and g astroesophageal reflux disorder, for which she continued to receive appropriate medications with no c omplications. There were no labs or studies done during her stay. CONDITION UPON DISCHARGE: Good. ACTIVITY: Ad deandra, though she requires supervision or standby assist for activities of daily living a nd mobility tasks. DIET: Regular. DATE OF NEXT APPOINTMENT: She is to follow up with neurosurgeon, Dr. Boyer, 07/06/2016, and with her primary care provider, Dr. Kellie Sloan, on 07/09/2016. MEDICATIONS AT DISCHARGE: 1. Acetaminophen 650 mg p.o. q.4 hours p.r.n. 2. Cholecalciferol 1000 units p.o. daily. 3. Senna 1-2 tablets p.o. twice daily p.r.n. 4. Oxybutynin 5 mg p.o. at bedtime. 5. Omeprazole 40 mg p.o. daily. 6. Metoclopramide 5 mg p.o. daily. 7. Lisinopril 10 mg p.o. daily. 8. Levothyroxine 75 mg p.o. daily. 9. Furosemide 10 mg p.o. daily p.r.n. leg swelling. 10. Bisoprolol/hydrochlorothiazide 10/6.25 mg 1 tab p.o. daily. ISSUES TO BE ADDRESSED AT FOLLOWUP: 1. Mobility and activities of daily living. She will continue physical and occupational therapy at home, and she can follow up with her primary care provider regarding these issues. 2. Status post ventricular peritoneal shunt placement. She will follow up with Dr. Boyer. Copy requested to: Kellie Sloan DO /[id number]/MODL
== END 2016-06-27 10:42 | disposition home health service (06) | DRG 950 ==
LOC: BREH 15:53
PROVIDERS: ADMIT Internal Medicine; ATTEND Internal Medicine
PROC: F07M3ZZ Motor Function Treatment of Musculoskeletal System - Whole Body (ICD-10-PCS; principal; 2016-06-12)
PROC: F08Z7ZZ Vocational Activities and Functional Community or Work Reintegration Skills Treatment (ICD-10-PCS; principal; 2016-06-12)
PROC: F0636ZZ Communicative/Cognitive Integration Skills Treatment of Neurological System - Whole Body (ICD-10-PCS; principal; 2016-06-12)
DX: Z48.811 Encounter for surgical aftercare following surgery on the nervous system (principal); Z98.2 Presence of cerebrospinal fluid drainage device; R26.2 Difficulty in walking, not elsewhere classified; N32.81 Overactive bladder; R53.81 Other malaise; F09 Unspecified mental disorder due to known physiological condition; Z98.1 Arthrodesis status; E66.01 Morbid (severe) obesity due to excess calories; Z68.38 Body mass index [BMI] 38.0-38.9, adult; I10 Essential (primary) hypertension; K21.9 Gastro-esophageal reflux disease without esophagitis; K31.84 Gastroparesis; K58.9 Irritable bowel syndrome, unspecified; E55.9 Vitamin D deficiency, unspecified; E03.9 Hypothyroidism, unspecified; M17.9 Osteoarthritis of knee, unspecified
CPT/HCPCS: 92507-GN; 92522-GN; 97001-GP; 97003-GO; 97110-GO; 97110-GP; 97112-GP; 97116-GP; 97530-GO; 97530-GP; 97532-GO; 97535-GO